=== PATIENT | female | born 1930 | race Caucasian/White ===

== ENCOUNTER 2019-07-10 16:42 | Emergency (ER) | payer OTHER ==
--- OUTSIDE RECORDS SUMMARY | 2019-07-10 16:45 | XMS REPORT ---
:1930 Author Organization [employer] Care Team Providers Name Role Phone Jonathon Streeter Provider Role Unavailable Allergies, Adverse Reactions, Alerts Substance Reaction Event Type N.K.D.A. 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 Active Problem Essential (primary) hypertension I10 Active Assessment Essential (primary) hypertension I10 Active Problem Gastroesophageal reflux disease K21.9 Active without esophagitis Problem Atrial fibrillation, unspecified I48.91 Active type Medications Medication Code Code Instructions Start End Status Dosage System Date Date Prilosec OTC ND 64981657762 20 MG Orally Active 1 tablet Once a day Flonase ND 13205032394 50 MCG/ACT November 09, Active 1 spray Nasally Once a 2017 in each day nostril Fluticasone Propionate NDC 34830529968 50 MCG/ACT Aug 22, Active 1 spray Nasally Once a 2018 in each day nostril Cozaar ND 19571650801 25 MG Active TAKE ONE (1) TABLET(S) BY MOUTH ONCE A DAY. Hydrochlorothiazide ND 92037648722 12.5 MG Active TAKE ONE (1) CAPSULE(S ) BY MOUTH ONCE A DAY. Paroxetine HCl ND 82379527086 20 MG Active TAKE ONE (1) TABLET(S) BY MOUTH ONCE A DAY. Meclizine HCl ND 36823393660 12.5 MG Orally Mar 10, Active 1 tablet Three times a 2018 as needed day Results No Known Results Immunizations Vaccine Administration Date FLUZONE HIGH DOSE OVER 65 Apr 20, 2019 Summary Purpose eClinicalWorks Submission
--- NOTE | 2019-07-10 17:16 | ER ---
Nurse's Notes [facility] Name: Mine Ott Age: 88 yrs Sex: Female : 1930 Arrival Date: 07/10/2019 Time: 16:46 Bed 8 Private MD: Diagnosis: Essential (primary) hypertension Presentation: 07/10 17:00 Presenting complaint: Patient states: Queta been out of my losartan 25 mg tablets for sg about 10 days now, I cant get a prescription refilled so im concerned about that. pt daughter reports pt having upper respiratory symptoms as well, a cough and shortness of breath for several day. Transition of care: patient was not received from another setting of care. Onset of symptoms was July 10, 2019. Risk Assessment: Do you want to hurt yourself or someone else? Patient reports no desire to harm self or others. Initial Sepsis Screen: Does the patient meet any 2 criteria? No. Patient's initial sepsis screen is negative. Does the patient have a suspected source of infection? No. Patient's initial sepsis screen is negative. Care prior to arrival: None. 17:00 Method Of Arrival: Ambulatory sg 17:00 Acuity: CLEM 3 sg Historical: - Allergies: 16:52 No Known Allergies; sg - PMHx: 17:14 Hypertension; ch - PSHx: 16:52 Hysterectomy; sg - Immunization history:: Adult Immunizations up to date. - Social history:: Smoking status: Patient/guardian denies using tobacco. - Ebola Screening: : Patient negative for fever greater than or equal to 101.5 degrees Fahrenheit, and additional compatible Ebola Virus Disease symptoms Patient denies exposure to infectious person Patient denies travel to an Ebola-affected area in the 21 days before illness onset No symptoms or risks identified at this time. - Family history:: not pertinent. Screenin:14 Abuse screen: Denies threats or abuse. Denies injuries from another. Nutritional ch screening: No deficits noted. Tuberculosis screening: No symptoms or risk factors identified. Fall Risk None identified. Assessment: 17:06 Reassessment: pt states she does not want lab work, she just wants her regular bp ch medication refilled. physician notified, orders held till physician assesses and speaks with pt. General: Appears in no apparent distress. comfortable, Behavior is calm, cooperative, appropriate for age. Pain: Denies pain. Neuro: No deficits noted. Cardiovascular: Denies chest pain. Respiratory: Airway is patent Respiratory effort is even, unlabored. GI: No signs and/or symptoms were reported involving the gastrointestinal system. Derm: No signs and/or symptoms reported regarding the dermatologic system. 17:17 Reassessment: pt refuses blood work, states she takes losartan 25 mg and just needs ch that refilled. 17:29 Reassessment: pt declines medication here, states she will just get it filled at the pharmacy. Vital Signs: 16:59 BP 147 / 51; Pulse 87; Resp 17; Temp 97.9; Pulse Ox 99% on R/A; Pain 0/10; sg 17:17 BP 137 / 77; Pulse 80; Resp 17; Pulse Ox 98% on R/A; ch ED Course: 16:46 Patient arrived in ED. rg4 16:52 Arm band placed on. sg 16:53 Benjie Lema MD is Attending Physician. [facility] 17:01 Triage completed. 17:06 Naomi Ferrera, SARAH is Primary Nurse. 17:14 Patient has correct armband on for positive identification. Placed in gown. Bed in low ch position. Call light in reach. Side rails up X 1. Adult w/ patient. 17:14 No provider procedures requiring assistance completed. 17:15 Rei Puente MD is Referral Physician. [facility] 19:24 Patient did not have IV access during this emergency room visit. Administered Medications: 17:29 Not Given (Patient Refused): Losartan 25 mg PO once Outcome: 17:15 Discharge ordered by . [facility] 17:30 Discharged to home ambulatory, with family. 17:30 Condition: stable 17:30 Discharge instructions given to patient, family, Instructed on discharge instructions, follow up and referral plans. medication usage, Demonstrated understanding of instructions, follow-up care, medications, Prescriptions given X 1. 17:30 Patient left the ED. Signatures: Naomi Ferrera RN RN ch Gay, Steven, RN RN Benjie Kumar MD MD cha Garcia, Rubi rg4
--- NOTE | 2019-07-10 17:17 | EDPHYS ---
Physician Documentation [facility] Name: Mine Ott Age: 88 yrs Sex: Female : 1930 Arrival Date: 07/10/2019 Time: 16:46 Bed 8 Private MD: ED Physician Benjie Lema HPI: 07/10 17:12 This 88 yrs old Female presents to ER via Ambulatory with complaints of High mario Blood Pressure. 17:12 The patient has elevated blood pressure and discovered this at home. Onset: The mario symptoms/episode began/occurred 1 year(s) ago. Modifying factors: The symptoms are aggravated by activity, The symptoms are alleviated by remaining still. Associated signs and symptoms: The patient has no apparent associated signs or symptoms. Severity of symptoms: At its worst the blood pressure was mild, in the emergency department the blood pressure is unchanged. The patient has experienced similar episodes in the past, multiple times. Historical: - Allergies: 16:52 No Known Allergies; sg - PMHx: 17:14 Hypertension; ch - PSHx: 16:52 Hysterectomy; sg - Immunization history:: Adult Immunizations up to date. - Social history:: Smoking status: Patient/guardian denies using tobacco. - Ebola Screening: : Patient negative for fever greater than or equal to 101.5 degrees Fahrenheit, and additional compatible Ebola Virus Disease symptoms Patient denies exposure to infectious person Patient denies travel to an Ebola-affected area in the 21 days before illness onset No symptoms or risks identified at this time. - Family history:: not pertinent. ROS: 17:12 Constitutional: Negative for fever, chills, and weight loss, Eyes: Negative for injury, mario pain, redness, and discharge, ENT: Negative for injury, pain, and discharge, Neck: Negative for injury, pain, and swelling, Cardiovascular: Negative for chest pain, palpitations, and edema, Abdomen/GI: Negative for abdominal pain, nausea, vomiting, diarrhea, and constipation, Back: Negative for injury and pain, : Negative for injury, bleeding, discharge, and swelling, MS/Extremity: Negative for injury and deformity, Skin: Negative for injury, rash, and discoloration, Neuro: Negative for headache, weakness, numbness, tingling, and seizure, Psych: Negative for depression, anxiety, suicide ideation, homicidal ideation, and hallucinations, Allergy/Immunology: Negative for hives, rash, and allergies, Endocrine: Negative for neck swelling, polydipsia, polyuria, polyphagia, and marked weight changes, Hematologic/Lymphatic: Negative for swollen nodes, abnormal bleeding, and unusual bruising. 17:12 Respiratory: Positive for cough. Exam: 17:12 Constitutional: This is a well developed, well nourished patient who is awake, alert, mario and in no acute distress. Head/Face: Normocephalic, atraumatic. Eyes: Pupils equal round and reactive to light, extra-ocular motions intact. Lids and lashes normal. Conjunctiva and sclera are non-icteric and not injected. Cornea within normal limits. Periorbital areas with no swelling, redness, or edema. ENT: Nares patent. No nasal discharge, no septal abnormalities noted. Tympanic membranes are normal and external auditory canals are clear. Oropharynx with no redness, swelling, or masses, exudates, or evidence of obstruction, uvula midline. Mucous membranes moist. Neck: Trachea midline, no thyromegaly or masses palpated, and no cervical lymphadenopathy. Supple, full range of motion without nuchal rigidity, or vertebral point tenderness. No Meningismus. Chest/axilla: Normal chest wall appearance and motion. Nontender with no deformity. No lesions are appreciated. Cardiovascular: Regular rate and rhythm with a normal S1 and S2. No gallops, murmurs, or rubs. Normal PMI, no JVD. No pulse deficits. Respiratory: Lungs have equal breath sounds bilaterally, clear to auscultation and percussion. No rales, rhonchi or wheezes noted. No increased work of breathing, no retractions or nasal flaring. Abdomen/GI: Soft, non-tender, with normal bowel sounds. No distension or tympany. No guarding or rebound. No evidence of tenderness throughout. Back: No spinal tenderness. No costovertebral tenderness. Full range of motion. Female : Normal external genitalia. Skin: Warm, dry with normal turgor. Normal color with no rashes, no lesions, and no evidence of cellulitis. MS/ Extremity: Pulses equal, no cyanosis. Neurovascular intact. Full, normal range of motion. Neuro: Awake and alert, GCS 15, oriented to person, place, time, and situation. Cranial nerves II-XII grossly intact. Motor strength 5/5 in all extremities. Sensory grossly intact. Cerebellar exam normal. Normal gait. Psych: Awake, alert, with orientation to person, place and time. Behavior, mood, and affect are within normal limits. 17:12 Musculoskeletal/extremity: ROM: no acute changes, intact in all extremities, Circulation is intact in all extremities. Pulses: DVT Exam: No signs of deep vein thrombosis. no pain, no swelling, no tenderness, negative Homans' sign noted on exam, no appreciated bluish discoloration, no erythema, no increased warmth. Vital Signs: 16:59 BP 147 / 51; Pulse 87; Resp 17; Temp 97.9; Pulse Ox 99% on R/A; Pain 0/10; sg 17:17 BP 137 / 77; Pulse 80; Resp 17; Pulse Ox 98% on R/A; ch MDM: 16:53 Patient medically screened. [facility] 17:14 Data reviewed: vital signs, nurses notes, EKG. [facility] 07/10 16:55 Order name: EKG; Complete Time: 16:56 [facility] 07/10 16:55 Order name: Cardiac monitoring; Complete Time: 16:55 [facility] 07/10 16:55 Order name: EKG - Nurse/Tech [facility] 07/10 16:55 Order name: IV Saline Lock [facility] 07/10 16:55 Order name: Labs collected and sent [facility] 07/10 16:55 Order name: O2 Per Protocol; Complete Time: 16:55 [facility] 07/10 16:55 Order name: O2 Sat Monitoring; Complete Time: 16:55 [facility] 07/10 16:55 Order name: Urine Dipstick-Ancillary (obtain specimen) [facility] Administered Medications: 17:29 Not Given (Patient Refused): Losartan 25 mg PO once Disposition: 07/10/19 17:15 Discharged to Home. Impression: Essential (primary) hypertension. - Condition is Stable. - Discharge Instructions: Hypertension, Hypertension, [id number], How to Take Your Blood Pressure, [id number], Managing Your Hypertension. - Prescriptions for Bromfed DM 2- 30-10 mg/5 mL Oral syrup - take 10 milliliter by ORAL route every 6 hours; 120 milliliter. losartan 25 mg Oral tablet - take 1 tablet by ORAL route once daily; 30 tablet. - Medication Reconciliation Form, Thank You Letter, Antibiotic Education, Prescription Opioid Use form. - Follow up: Private Physician; When: 2 - 3 days; Reason: Recheck today's complaints, Continuance of care, Re-evaluation by your physician. Follow up: Rei Puente MD; When: 2 - 3 days; Reason: Recheck today's complaints, Continuance of care, Re-evaluation by your physician. - Problem is new. - Symptoms have improved. Signatures: Dispatcher [employer] EDWI Naomi Ferrera RN RN Bismark Newberry RN RN Benjie Lema MD MD cha Corrections: (The following items were deleted from the chart) 17:12 16:56 Chest Single View+RAD.RAD.BRZ ordered. EDMS EDMS 17:17 16:56 BASIC METABOLIC PANEL+C.LAB.BRZ ordered. EDWI EDMS 17:17 16:56 CBC+H.LAB.BRZ ordered. EDMS EDMS 17:17 16:56 HEPATIC FUNCTION+C.LAB.BRZ ordered. EDWI EDMS 17:17 16:56 MAGNESIUM+C.LAB.BRZ ordered. EDWI EDMS 17:17 16:56 PROBNP+C.LAB.BRZ ordered. EDWI EDMS 17:18 16:56 PROTIME (+INR)+COAG.LAB.BRZ ordered. EDWI EDMS 17:18 16:56 TROPONIN (EMERG DEPT USE ONLY)+C.LAB.BRZ ordered. EDWI EDMS 17:30 17:15 07/10/2019 17:15 Discharged to Home. Impression: Essential (primary) ch hypertension. Condition is Stable. Forms are Medication Reconciliation Form, Thank You Letter, Antibiotic Education, Prescription Opioid Use. Follow up: Private Physician; When: 2 - 3 days; Reason: Recheck today's complaints, Continuance of care, Re-evaluation by your physician. Follow up: Rei Puente; When: 2 - 3 days; Reason: Recheck today's complaints, Continuance of care, Re-evaluation by your physician. Problem is new. Symptoms have improved. mario
--- NOTE | 2019-07-11 14:07 | EKG ---
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
== END 2019-07-10 17:30 | disposition home or self-care (01) ==
LOC: ER 16:42
DX: I10 Essential (primary) hypertension (principal)
CPT/HCPCS: 93005; 99282